=== PATIENT | female | born 1995 | race Caucasian/White ===

== ENCOUNTER → 2020-11-10 08:04 | Outpatient (BNVA) | payer OTHER, SELFPAY | PROVIDERS: PCP Nurse Practitioner Family; Visit Provider Surgery ==

== ENCOUNTER 2020-11-11 12:50 | Outpatient (REF) | payer OTHER, SELFPAY ==
--- NOTE | ~2020-11-11 | XR_ITS ---
EXAMINATION: XR CHEST CLINICAL INFORMATION: Obesity COMPARISON: None TECHNIQUE: 2 views of the chest were obtained. FINDINGS: No significant abnormality is noted involving the heart, lungs, mediastinum, bony thorax or soft tissues. XR/XR chest 2V IMPRESSION: Unremarkable examination.
--- NOTE | 2020-11-11 13:02 | ECG_ITS ---
Test Reason : MORBID OBESITY Blood Pressure : / mmHG Vent. Rate : 072 BPM Atrial Rate : 072 BPM P-R Int : 130 ms QRS Dur : 088 ms QT Int : 376 ms P-R-T Axes : 025 004 009 degrees QTc Int : 411 ms Normal sinus rhythm Minimal voltage criteria for LVH, may be normal variant Borderline ECG No previous ECGs available Referred By: Xander Miller Electronically Signed By:DERICK CHU MD
[2020-11-11 14:05] LABS: MANUAL DIFF FLAG NO
[2020-11-11 14:19] LABS: Basophils Percent Auto 0.4 % (0-2); Eosinophils Absolute Auto 0.1 X10*3/uL (0.0-0.4); Hemoglobin 12.1 g/dl (12.0-16.0); Imm Gran Abs Auto 0.02 X10*3/uL (0.00-0.03); Imm Gran Pct Auto 0.2 % (0.0-0.4); Lymphocytes Absolute Auto 2.1 X10*3/uL (1.2-4.9); Lymphocytes Percent Auto 25.5 % (20-40); Mean Corpuscular HGB Conc 31.8 g/dl (31.0-35.0); Mean Corpuscular Hemoglobin 27.9 pg (27.0-33.0); Mean Corpuscular Volume 87.8 fL (80-98); Mean Platelet Volume 10.1 fL (9.4-12.3); Monocytes Absolute Auto 0.5 X10*3/uL (0.1-1.2); Monocytes Percent Auto 6.4 % (2-11); Neutrophils Absolute Auto 5.5 X10*3/uL (2.0-8.3); Neutrophils Percent Auto 66.5 % (45-73); Platelet Count 333 X10*3/uL (160-400); Red Blood Count 4.33 X10*6/uL (4.20-5.50); Red Cell Distribution Width 12.8 % (11.0-16.0); White Blood Count 8.3 X10*3/uL (4.8-10.8)
[2020-11-11 14:25] LABS: Estimated Average Glucose 88 mg/dL; Hemoglobin A1c % 4.7 %
[2020-11-11 14:44] LABS: Alanine Aminotransferase 15 U/L (0-31); Albumin Level 4.1 g/dL (3.5-5.0); Alkaline Phosphatase 82 U/L (39-117); Anion Gap 13 (12-20); Aspartate Amino Transferase 16 U/L (5-31); Bilirubin Total 0.6 mg/dL (0.0-1.0); Blood Urea Nitrogen 11 mg/dL (9-16); Calcium 9.3 mg/dL (8.4-10.2); Carbon Dioxide 26 mmol/L (22-29); Chloride 103 mmol/L (96-108); Cholesterol 148 mg/dL; Estimated Glomerular Filt Rate > 60; Glucose Random 88 mg/dL (60-115); HDL Cholesterol 43 mg/dL; Iron 122 mcg/dL (30-160); LDL Cholesterol Calculated 91 mg/dl; Percent Iron Saturation 34 % (15-50); Potassium 4.3 mmol/L (3.3-5.1); Sodium 138 mmol/L (135-145); Total Iron Binding Capacity 359 mcg/dL (228-428); Total Protein 7.4 g/dL (6.5-8.0); Triglycerides 71 mg/dL; Unsaturated Iron Binding 237 ug/dL
[2020-11-11 14:58] LABS: Ferritin 42 ng/mL (10-122); TSH reflex Free T4 1.95 uIU/mL (0.32-4.0); Vitamin D 25-OH Total 20.8 ng/mL (>30)
[2020-11-11 15:12] LABS: Folate 15.1 ng/mL (> or = 4.0); Vitamin B12 345 pg/mL (200-900)
[2020-11-12 06:27] LABS: Insulin Level Total 12.5 uIU/mL
[2020-11-13 14:22] LABS: Calcium (PTHI) 9.1 mg/dL (8.6-10.2); PTHI 40 pg/mL (14-64)
[2020-11-16 06:41] LABS: Vitamin B1 12 nmol/L (8-30)
[2020-11-18 22:41] LABS: Vitamin A 34 mcg/dL (38-98)
== END 2020-11-11 12:51 | disposition home or self-care (01) ==
LOC: HO.LAB 12:50
PROVIDERS: Visit Provider Surgery
DX: E28.2 Polycystic ovarian syndrome (principal); E66.01 Morbid (severe) obesity due to excess calories; K21.9 Gastro-esophageal reflux disease without esophagitis
CPT/HCPCS: 36415; 71046; 80053; 80061; 82306; 82607; 82728; 82746; 83036; 83525; 83540; 83970; 84425; 84443; 84590; 85025; 86140; 93005

== ENCOUNTER 2020-11-23 12:57 | Outpatient (REF) | payer OTHER, SELFPAY ==
[2020-11-24 12:06] LABS: H Pylori Breath Test NOT DETECTED (NOT DETECTED)
== END 2020-11-23 12:58 | disposition home or self-care (01) ==
LOC: HO.LNP 12:57
PROVIDERS: Surgery; PCP Nurse Practitioner Family; Referring Provider Nurse Practitioner Family; Visit Provider Physician Assistant
DX: E66.01 Morbid (severe) obesity due to excess calories (principal); E28.2 Polycystic ovarian syndrome; K21.9 Gastro-esophageal reflux disease without esophagitis; E11.9 Type 2 diabetes mellitus without complications; Z11.3 Encounter for screening for infections with a predominantly sexual mode of transmission
CPT/HCPCS: 83013; 99211

== ENCOUNTER 2020-11-24 09:52 | Outpatient (REF) | payer OTHER, SELFPAY ==
--- NOTE | ~2020-11-24 | US_ITS ---
EXAMINATION: US COMPLETE ABDOMEN WITH LIVER ELASTOGRAPHY CLINICAL INFORMATION: Obesity COMPARISON: None. TECHNIQUE: Real-time imaging of the abdominal viscera. Noninvasive ultrasound liver fibrosis assessment is performed using Kaelyn ElastPQ point quantification shear wave elastography (pSWE) with a C5-2 MHz transducer. Multiple elastography samples are obtained. FINDINGS: PANCREAS: Normal. ABDOMINAL AORTA: The proximal, middle, and distal aortic segments are normal in caliber. INFERIOR VENA CAVA: Visualized portions are normal. LIVER: Normal. The liver demonstrates normal size, contour and echogenicity. No focal lesion or intrahepatic biliary duct dilatation. The right lobe measures 13.6 cm in length. The left lobe measures 10.6 cm in length. Portal flow is normal/hepatopedal Shear wave liver elastography median stiffness is 1.46 m/s (reference: normal median stiffness is 1.3 m/s or less). IQR/median stiffness to assess sampling precision is 0.14 (reference: good quality data set is IQR/median stiffness of 0.15 or less). GALLBLADDER: Normal. The gallbladder is physiologically distended without evidence of stones, sludge, polyps, wall thickening or pericholecystic fluid. COMMON BILE DUCT: Normal in caliber measuring 0.4 cm in diameter. RIGHT KIDNEY: Normal. No hydronephrosis. No renal calculi or focal parenchymal lesions. The kidney measures 11.8 cm in maximum dimension 0.4. LEFT KIDNEY: Normal. No hydronephrosis. No renal calculi or focal parenchymal lesions. The kidney measures 10.5 cm in maximum dimension. SPLEEN: Normal. The spleen measures 10.6 cm in maximum dimension. FREE FLUID: None. US/US abdomen comp w elastography IMPRESSION: 1. Impression: Unremarkable exam 2. Liver elastography: Minimally elevated liver stiffness. In the absence of other known clinical signs, rule out compensated advanced chronic liver disease. REFERENCE: Society of Radiologists in Ultrasound Liver Stiffness Thresholds (2020): LIVER STIFFNESS THRESHOLDS: *Liver Stiffness equal or less than 1.3 m/s: High probability of being normal. *Liver Stiffness less than 1.7 m/s: In the absence of other known clinical signs, rules out compensated advanced chronic liver disease. *Liver Stiffness 1.7-2.1 m/s: Suggestive of compensated advanced chronic liver disease but need further test for confirmation. *Liver Stiffness over 2.1 m/s: Rules in compensated advanced chronic liver disease. *Liver Stiffness over 2.4 m/s: Suggestive of clinically significant portal hypertension. QUALITY OF DATA SET: *IQR/Median value equal or less than 0.15 implies a quality data set. *IQR/Median value over 0.15 implies a poor quality data set. SIGNIFICANT CHANGE FROM PRIOR EXAM: Significant change if liver stiffness measurement is 10% or greater from prior exam. OTHER CONSIDERATIONS: The stage of liver fibrosis may be overestimated in the setting of acute hepatitis, liver inflammation, elevated liver function tests, hepatic vascular congestion, obstructive cholestasis, non-fasting state, and infiltrative diseases such as amyloidosis and lymphoma. In some patients with NAFLD, the liver stiffness thresholds for compensated advanced chronic liver disease may be lower. In causes other than viral hepatitis and NAFLD, liver stiffness thresholds are not well established.
--- NOTE | ~2020-11-24 | FL_ITS ---
EXAMINATION: XR GI SERIES CLINICAL INFORMATION: Obesity COMPARISON: None TECHNIQUE: Upper GI was performed using thin and thick barium and effervescent granules. FINDINGS: Esophageal motility is normal. No hernia is seen. No gastroesophageal reflux is seen. The stomach and duodenum are normal. No fold thickening mass, stricture or ulcer is seen. FLUOROSCOPY TIME: 0.7 DOSE AREA PRODUCT: 10.6 schuler per centimeter squared. 21 saved fluoroscopic images. FL/FL upper GI series IMPRESSION: Unremarkable exam.
== END 2020-11-24 09:53 | disposition home or self-care (01) ==
LOC: HO.US 09:52
PROVIDERS: Visit Provider Surgery
DX: Z01.818 Encounter for other preprocedural examination (principal); E28.2 Polycystic ovarian syndrome; E66.01 Morbid (severe) obesity due to excess calories; K21.9 Gastro-esophageal reflux disease without esophagitis
CPT/HCPCS: 74240; 76705; 76981

== ENCOUNTER → 2020-11-25 08:19 | Outpatient (BNVA) | payer OTHER, SELFPAY | PROVIDERS: PCP Nurse Practitioner Family; Visit Provider Surgery ==

== ENCOUNTER → 2020-12-02 08:17 | Outpatient (BNVA) | payer OTHER, SELFPAY | PROVIDERS: PCP Nurse Practitioner Family; Visit Provider Dietitian, Registered | DX: E66.01 Morbid (severe) obesity due to excess calories (principal); Z68.43 Body mass index [BMI] 50.0-59.9, adult | CPT/HCPCS: 97802 ==

== ENCOUNTER → 2020-12-15 07:28 | Outpatient (BNVA) | payer OTHER, SELFPAY | PROVIDERS: PCP Nurse Practitioner Family; Visit Provider Surgery ==

== ENCOUNTER → 2021-01-20 07:30 | Outpatient (BNVA) | payer OTHER, SELFPAY | PROVIDERS: PCP Nurse Practitioner Family; Visit Provider Surgery ==

== ENCOUNTER → 2021-01-22 13:23 | Outpatient (BNVA) | payer OTHER, SELFPAY | PROVIDERS: PCP Nurse Practitioner Family; Visit Provider Physician Assistant ==

== ENCOUNTER 2021-01-26 07:17 | Inpatient (IN) | payer OTHER, SELFPAY ==
[2021-01-19 10:34] VITALS: BMI 49.6
[2021-01-22 16:12] LABS: MANUAL DIFF FLAG NO
[2021-01-22 16:15] LABS: Basophils Percent Auto 0.4 % (0-2); Eosinophils Absolute Auto 0.1 X10*3/uL (0.0-0.4); Eosinophils Percent Auto 0.7 % (0-4); Hematocrit 39.2 % (37-47); Hemoglobin 12.5 g/dl (12.0-16.0); Imm Gran Abs Auto 0.03 X10*3/uL (0.00-0.03); Imm Gran Pct Auto 0.4 % (0.0-0.4); Lymphocytes Absolute Auto 1.3 X10*3/uL (1.2-4.9); Lymphocytes Percent Auto 15.7 % (20-40); Mean Corpuscular HGB Conc 31.9 g/dl (31.0-35.0); Mean Corpuscular Hemoglobin 28.7 pg (27.0-33.0); Mean Corpuscular Volume 90.1 fL (80-98); Mean Platelet Volume 10.1 fL (9.4-12.3); Monocytes Absolute Auto 0.6 X10*3/uL (0.1-1.2); Monocytes Percent Auto 7.1 % (2-11); Neutrophils Absolute Auto 6.4 X10*3/uL (2.0-8.3); Neutrophils Percent Auto 75.7 % (45-73); Platelet Count 306 X10*3/uL (160-400); Red Blood Count 4.35 X10*6/uL (4.20-5.50); Red Cell Distribution Width 12.8 % (11.0-16.0); White Blood Count 8.5 X10*3/uL (4.8-10.8)
[2021-01-22 16:19] LABS: INTERNATIONAL NORM RATIO 1.1 (0.9-1.1); Prothrombin Time 12.3 SEC (9.9-13.0)
[2021-01-22 16:22] LABS: Partial Thromboplastin Time 34.1 SEC (24.1-38.0)
[2021-01-22 16:32] LABS: Estimated Average Glucose 88 mg/dL; Hemoglobin A1c % 4.7 %
[2021-01-22 16:37] LABS: Alanine Aminotransferase 11 U/L (0-31); Albumin Level 4.4 g/dL (3.5-5.0); Alkaline Phosphatase 78 U/L (39-117); Anion Gap 14 (12-20); Aspartate Amino Transferase 15 U/L (5-31); Bilirubin Total 0.5 mg/dL (0.0-1.0); Blood Urea Nitrogen 9 mg/dL (9-16); C Reactive Protein 1.66 mg/dL (< or = 0.50); Carbon Dioxide 28 mmol/L (22-29); Chloride 103 mmol/L (96-108); Cholesterol 140 mg/dL; Creatinine Clr Calc Pharmacy 150.9; Estimated Glomerular Filt Rate > 60; Glucose Random 95 mg/dL (60-115); HDL Cholesterol 36 mg/dL; LDL Cholesterol Calculated 89 mg/dl; Potassium 4.8 mmol/L (3.3-5.1); Sodium 140 mmol/L (135-145); Total Protein 7.8 g/dL (6.5-8.0); Triglycerides 77 mg/dL
[2021-01-22 16:57] LABS: TSH reflex Free T4 0.67 uIU/mL (0.32-4.0)
[2021-01-23 10:02] LABS: Insulin Level Total 9.5 uIU/mL
--- NOTE | 2021-01-25 10:13 | P.CONAN_ITS ---
Documented by User: Qi Callahan 01/25/21 10:14 HPI - Anesthesia Eval Consult details Narrative: 25yo F for Gastrectomy Sleeve, EGD, Poss Diaphragmatic Hernia, Poss Ventral Hernia, Poss open PMFSH Active Problems Active Problems: All Active Problems (Updated 01/19/21 @ 10:38 by Yisel Merrill) Adjustment disorder, unspecified (Acute) Vitamin A deficiency (Acute) Vitamin D deficiency (Acute) Vitamin B12 deficiency (Acute) GERD (gastroesophageal reflux disease) (Acute) PCOS (polycystic ovarian syndrome) (Acute) Non-insulin dependent diabetes mellitus (Acute) Morbid obesity (Acute) Past Medical History Medical History COVID-19 vaccine series completed GERD (gastroesophageal reflux disease) Morbid obesity Non-insulin dependent diabetes mellitus PCOS (polycystic ovarian syndrome) Vitamin A deficiency Vitamin B12 deficiency Vitamin D deficiency Family History Family History Mother Diabetes Father No problems noted. Brother No problems noted. Surgical History Surgical History History of dental surgery No significant past surgical history Social History Social History Are you a primary home care scheduler to a significant other at home: No Do you presently have visiting nurse or other home services: No Alcohol intake: never Patient Tobacco Use Status: Never used Tobacco Use of substances other than those prescribed or required for medical reasons: No Have you been hit, kicked, punched, or otherwise hurt by someone within the past year? If so, by whom?: No Are you DNR?: No Advance Directives: No Advance Directives Information Provided: No Advance Directives on File: No Recently lost weight without trying: No How much weight loss: 24-33 pounds Eating poorly because of decreased appetite: No Nutrition screen score: 3 Nutrition Risks: No Nutritional Risk Patient : No FDLMP: 10/2020 : No Meds Allergies Allergy/AdvReac Type Severity Reaction Status Date / Time Penicillins Allergy Intermediate Hives Verified 01/26/21 11:12 control patch Allergy Mild Rash Uncoded 01/26/21 11:12 Home Medications Medication Instructions Recorded Confirmed Last Taken Type famotidine 20 mg tablet 20 mg PO BID 11/10/20 01/20/21 Unknown History metformin 500 mg tablet 500 mg PO BEDTIME 11/10/20 01/20/21 Unknown History multivitamin 1 tab PO DAILY 11/10/20 01/20/21 Unknown History progesterone micronized 200 mg 400 mg PO BEDTIME 11/10/20 01/20/21 2 Months Ago History capsule ~11/19/20 Exam Exam Date and Time: January 25, 2021 1013 Height,Weight and Vital Signs: Height 5 ft 3 in Weight 127.006 kg Pertinent Lab Results Pertinent Lab Results: Laboratory Tests 01/22/21 01/22/21 01/22/21 15:55 15:55 15:55 WBC 8.5 RBC 4.35 Hgb 12.5 Hct 39.2 MCV 90.1 MCH 28.7 MCHC 31.9 RDW 12.8 Plt Count 306 MPV 10.1 Immature Gran % (Auto) 0.4 Neut % (Auto) 75.7 H Lymph % (Auto) 15.7 L [place] % (Auto) 7.1 Eos % (Auto) 0.7 Baso % (Auto) 0.4 Lymph # (Auto) 1.3 [place] # (Auto) 0.6 Eos # (Auto) 0.1 Baso # (Auto) 0.0 Abs Immat Gran (auto) 0.03 Absolute Neuts (auto) 6.4 Absolute Nucleated RBC 0.000 Nucleated RBC % (auto) 0.0 PT 12.3 INR 1.1 APTT 34.1 Sodium 140 Potassium 4.8 Chloride 103 Carbon Dioxide 28 Anion Gap 14 BUN 9 Creatinine 0.74 Estim Creat Clear Calc 150.9 Estimated GFR > 60 Random Glucose 95 Estimat Average Glucose Hemoglobin A1c % Total Insulin Calcium 10.0 D Total Bilirubin 0.5 AST 15 ALT 11 Alkaline Phosphatase 78 C-Reactive Protein 1.66 H Total Protein 7.8 Albumin 4.4 Triglycerides 77 Cholesterol 140 LDL Cholesterol, Calc 89 HDL Cholesterol 36 TSH 0.67 Blood Type Antibody Screen 01/22/21 01/22/21 01/22/21 15:55 15:55 15:55 WBC RBC Hgb Hct MCV MCH MCHC RDW Plt Count MPV Immature Gran % (Auto) Neut % (Auto) Lymph % (Auto) [place] % (Auto) Eos % (Auto) Baso % (Auto) Lymph # (Auto) [place] # (Auto) Eos # (Auto) Baso # (Auto) Abs Immat Gran (auto) Absolute Neuts (auto) Absolute Nucleated RBC Nucleated RBC % (auto) PT INR APTT Sodium Potassium Chloride Carbon Dioxide Anion Gap BUN Creatinine Estim Creat Clear Calc Estimated GFR Random Glucose Estimat Average Glucose 88 Hemoglobin A1c % 4.7 Total Insulin 9.5 Calcium Total Bilirubin AST ALT Alkaline Phosphatase C-Reactive Protein Total Protein Albumin Triglycerides Cholesterol LDL Cholesterol, Calc HDL Cholesterol TSH Blood Type O Positive Antibody Screen NEGATIVE Narrative Narrative: EKG 10/2020 Vent. Rate : 072 BPM Atrial Rate : 072 BPM P-R Int : 130 ms QRS Dur : 088 ms QT Int : 376 ms P-R-T Axes : 025 004 009 degrees QTc Int : 411 ms Normal sinus rhythm Minimal voltage criteria for LVH, may be normal variant Borderline ECG No previous ECGs available Assessment and Plan Assessment Anesthesia Assessment: Chart Reviewed Documented by User: Laurel Hall 01/26/21 11:38 [facility] Past Medical History Medical History COVID-19 vaccine series completed GERD (gastroesophageal reflux disease) Morbid obesity Non-insulin dependent diabetes mellitus PCOS (polycystic ovarian syndrome) Vitamin A deficiency Vitamin B12 deficiency Vitamin D deficiency Family History Family History Mother Diabetes Father No problems noted. Brother No problems noted. Surgical History Surgical History History of dental surgery No significant past surgical history Social History Social History Are you a primary home care scheduler to a significant other at home: No Do you presently have visiting nurse or other home services: No Alcohol intake: never Patient Tobacco Use Status: Never used Tobacco Use of substances other than those prescribed or required for medical reasons: No Have you been hit, kicked, punched, or otherwise hurt by someone within the past year? If so, by whom?: No Are you DNR?: No Advance Directives: No Advance Directives Information Provided: No Advance Directives on File: No Recently lost weight without trying: No How much weight loss: 24-33 pounds Eating poorly because of decreased appetite: No Nutrition screen score: 3 Nutrition Risks: No Nutritional Risk Patient : No FDLMP: 10/2020 : No Meds Allergies Allergy/AdvReac Type Severity Reaction Status Date / Time Penicillins Allergy Intermediate Hives Verified 01/26/21 11:12 control patch Allergy Mild Rash Uncoded 01/26/21 11:12 Home Medications Medication Instructions Recorded Confirmed Last Taken Type famotidine 20 mg tablet 20 mg PO BID 11/10/20 01/20/21 Unknown History metformin 500 mg tablet 500 mg PO BEDTIME 11/10/20 01/20/21 Unknown History multivitamin 1 tab PO DAILY 11/10/20 01/20/21 Unknown History progesterone micronized 200 mg 400 mg PO BEDTIME 11/10/20 01/20/21 2 Months Ago History capsule ~11/19/20 Exam Airway Mallampati Class: II TM Dist: >3cm Neck ROM: Full Loose/Missing/Broken Teeth: No Heart: RRR Lungs: CTA Assessment and Plan Assessment Anesthesia Assessment: Anesthesia Plan Discussed and Chart Reviewed Final Anesthetic Review NPO: Yes ASA Class: III Final Preanesthetic Review: Meds/Allgs Chart Reviewed, Consent Obtained/Reviewed and Anes Risks/Benef Reviewed Patient Risk: Intermediate Procedure Risk: Intermediate Anesthetic Plan Anesthetic Plan: GA Disposition: Standard PACU
--- NOTE | 2021-01-25 19:18 | MHC.SHP ---
Pre-Procedural Eval Section A Date of Service: 01/25/21 The patient is an INPATIENT: Yes The History & Physical has been completed within 30 days and I have reviewed it.: Yes Section B Chief Complaint: Morbid Severe Obesity Details of Present Illness: obesity Relevant Family History (Specify if Yes): No Relevant Social History: None Present Medications: see Short Stay Collaborative assessment Medical History: No relevant PMH History of Previous Operations: No relevant previous surgery Allergies: Allergies Allergy/AdvReac Type Severity Reaction Status Date / Time Penicillins Allergy Unknown Hives Verified 01/20/21 13:27 control patch Allergy Rash Uncoded 01/20/21 13:27 Review of Systems Sugical H&P ROS: Negative: Constitution, Cardiovascular, Respiratory, Neurological, Psychiatric, Hem-Onc, Allergic/Immunologic, Gastrointestinal, Genitourinary, Musculoskeletal, Integumentary, Endocrine and Eyes/Ears/Nose/Throat Exam Surgical H&P Exam: Normal: HEENT, Normal: Heart, Normal: Lungs, Normal: Extremities, Normal: Abdomen, Normal: Skin and Normal: Neurological Plan Diagnosis/Plan: Unchanged I have reviewed the history and physical and performed a pertinent physical examination on my patient. No changes have occurred unless specified.
[2021-01-26] VITALS (10 sets, daily range): BP systolic 104–137; BP diastolic 60–75; PULSE 67–109; RESP 12–18; TEMP 36.3–37; O2SAT 95–100
[2021-01-26 10:59] LABS: Glucose, Whole Blood 76 mg/dL (60-115)
[2021-01-26 11:03] LABS: UPreg QC Valid YES; Urine Pregnancy NEGATIVE (NEGATIVE)
[2021-01-26 11:16] LABS: COVID-19 Test Negative (Negative); IDNOW Serial# 9DD0AD1C
[2021-01-26] MEDS: Lactated Ringers 1,000 ML 100 ML IVCONT (11:27)
[2021-01-26] MEDS: levoFLOXacin/D5W 500 MG/100 ML PIGGYBACK 100 MG IV (11:27)
[2021-01-26] MEDS: Lactated Ringers 1,000 ML 999 ML IV (11:50)
--- NOTE | 2021-01-26 12:15 | P.BOP_ITS ---
Brief Operative Note Date of Service: 01/26/21 Pre-op diagnosis: Morbid obesity and comorbidities (see below) Post-op diagnosis: same Procedure: INITIAL PATIENT BMI ON PRESENTATION AT OUR OFFICE: 54.8 kg/m2 LAST BMI BEFORE SURGERY: 49 kg/m2 COMORBIDITIES: non-insulin dependent diabetes, GERD, PCOS, liver fibrosis The patient participated in an intensive weekly lifestyle intervention and exercise program during which the patient has lost between the initial office visit and the last preoperative visit 37.5lbs, or 12.12% of initial actual body weight. The patient met the BMI-criteria for bariatric surgery based on the BMI on initial presentation. The patient should not be penalized for achieving such weight loss because it is not sustainable long-term without surgical intervention and it was achieved in preparation for bariatric surgery under my direction and based on my published research ([email or web address] and [email or web address]) that a 10% preoperative weight loss improves long-term weight loss after surgery and reduces perioperative complications. Insurance carriers such as [facility] have endorsed my recommendations and have included in their policies criteria to include a 10% preoperative weight loss requirement. PROCEDURE: Esophago-gastroscopy, laparoscopic repair of incarcerated diaphragmatic hernia, laparoscopic lysis of adhesions, laparoscopic sleeve gastrectomy and laparoscopic gastropexy INDICATIONS: This is a 25 year-old female who was electively scheduled for laparoscopic, possibly open sleeve gastrectomy. The risks and complications of the procedure were discussed with the patient in advance, particularly the possibility of ; pulmonary embolism; staple line leak; bleeding; GERD; cardiac, pulmonary, or renal complications; as well as long-term problems such as insufficient weight loss, vitamin deficiency, strictures, or ulcers. The patient understood all the risks, and was in agreement to proceed with surgery. DESCRIPTION OF PROCEDURE: After informed consent was obtained from the patient, the patient was given preoperative antibiotics, and was transferred to the operating room. After successful induction of general anesthesia, a Hernandez catheter and pneumatic compressive devices were placed on both lower extremities. An upper endoscopy was performed next. The oropharynx and esophagus appeared to be within normal limits. There was a diaphragmatic hernia present of moderate size consistent with the findings of the preoperative upper GI. The stomach was entered. Then after all fluid and air were suctioned and the stomach was fully decompressed, the scope was withdrawn and secured in the mid esophagus. The patient was then prepped and draped in the usual sterile manner, and abdominal access was established at the right upper quadrant with the Travon technique. A 12 mm blunt port was inserted, and the abdomen was insufflated with CO2 to a pressure of 15 mmHg. Under direct visualization, additional ports were placed, specifically two 5 mm Versi-step ports to the left upper quadrant, and a 5 mm Versi-Step port to the right upper quadrant. 1% lidocaine plain was used to infiltrate all port sites as well as all fascia defects. Following that, the patient was placed in a steep reverse Trendelenburg position. An additional 5 mm port was placed to the right flank for the Mediflex retractor that was used to retract the left lobe of the liver. The gastro-esophageal fat pad was opened with the ultrasonic device (Thunderbeat, Olympus) and the anterior esophagus and hiatus were exposed. The angle of His was opened with the ultrasonic device the fundus of the stomach from any diaphragmatic and splenic attachments. I then opened the gastrocolic ligament between the transverse colon and the greater curvature of the stomach with the ultrasonic device to enter the lesser sac and facilitate the ligation of the short gastric vessels. I started at a mid-point along the greater curvature and using the Thunderbeat, all short gastric vessels were divided all the way to the angle of His until the left elise was completely dissected at its entirety. I then divided the gastro-colic ligament distally to a distance of about 3-4 cm proximal to the esophagus. The stomach was then divided transversely with one Endo PAPITO-45 purple and four PAPITO-60 articulating orange loads using the AEON stapler and loads. Every effort was made that the gastric sleeve had a tubular shape and an even caliber throughout. Once the sleeve resection was completed, the staple line of the gastric sleeve was reinforced with Hemoclips. The resected stomach was retrieved without difficulty from the Travon port. A gastropexy was then performed in order to prevent postoperative GERD and partial gastric volvulus. Several interrupted 2.0 Surgidac sutures were placed between the sleeve's staple line and the previously divided greater omentum and gastro-colic ligament using the Endo-Stitch device. An upper endoscopy was performed. There was no narrowing at the GE junction. The scope was easily advanced all the way to the pylorus which was clearly visualized. There was no narrowing anywhere and the sleeve's caliber was even throughout. The sleeve's staple line was inspected and there was no evidence of ischemia, bleeding or dehiscence. At that point the gastroscope was withdrawn from the patient?s mouth while we were decompressing the bowel and the stomach from any remaining air. I looked into the lesser sac to see how the sleeve was situating and it was situating well. There was no bleeding from the staple line, spleen, or short gastric vessels. The Mediflex retractor was removed, and the undersurface of the liver was inspected and there was no bleeding. The patient was placed in supine position. I closed the fascial defect of the 12 mm port site with a figure of eight #1 Polysorb suture. Then 100 cc 0.25 % Marcaine plain with 10 mg of Dexamethasone were used to infiltrate the fascial closure as well as all skin incisions. At this point, the abdomen was deflated, all ports were removed under direct vision, and no bleeding was noted from any of the port sites. The skin incisions were irrigated with saline and were closed with 4-0 absorbable monofilament sutures. Steri-Strips and OpSites were used to cover all incisions. The patient was extubated and was transferred in stable condition to the recovery room for further care. I was present and performed all schneider parts of the procedure. [place] was the first aid trainer. There were no residents to assist with this case. Miles Miller MD, PhD, FACS Surgeon: Xander Miller MD Anesthesia: GETA, local and other (TAP block) Was an Director Of Instructional Technology used for this Procedure?: Yes Director Of Instructional Technology: Lona Perry Estimated blood loss (mL): 5 IV fluids (mL): 3,000 Urine output (mL): 0 (No Hernandez to gravity) Pathology: other (Stomach) Condition: stable Disposition: PACU
--- NOTE | 2021-01-26 12:18 | PM.PNGS ---
Subjective Subjective Date of Service: 01/27/21 Interval history: Patient has mild incisional pain but was able to ambulate and use the incentive spirometer. Is tolerating phase 1 bariatric diet. Physical Exam Vital Signs: Vital Signs: Last Vital Signs Temp 98.1 F 01/26/21 11:13 Pulse 109 H 01/26/21 11:13 Resp 18 01/26/21 11:13 BP 137/75 01/26/21 11:13 Pulse Ox 99 01/26/21 11:13 Body Mass Index 49.6 GI: Inspection: Yes normal to inspection, Yes incision (clean, dry and intact) and Yes obesity Extrem: Right lower extremity: normal to inspection (no calf tenderness) Left lower extremity: normal to inspection (no calf tenderness) Procedures Date of Service Date of Service: 01/27/21 Progress Note: A&P Assessment and plan (1) Morbid obesity: Status: Acute (2) Non-insulin dependent diabetes mellitus: Status: Acute (3) PCOS (polycystic ovarian syndrome): Status: Acute (4) GERD (gastroesophageal reflux disease): Status: Acute (5) Liver fibrosis: Status: Acute (6) S/P laparoscopic sleeve gastrectomy: Status: Acute Assessment and Plan: s/p laparoscopic sleeve gastrectomy and gastropexy Doing well Check am labs. If OK, will discharge home Fall Risk Details Current Medications: Current Medications Generic Name Dose Route Start Last Admin Trade Name Freq PRN Reason Stop Dose Admin Albuterol Sulfate 2.5 mg 01/26/21 11:39 Albuterol Sulfate (0.083%) 2.5 Mg/3 Ml Vial.Neb INHALE ONCE PRN Wheezing Fentanyl 50 mcg 01/26/21 11:39 Fentanyl Citrate/Pf 100 Mcg/2 Ml Vial IVPUSH Q5M PRN Pain, Severe (Pain Scale 7-10) Fentanyl 25 mcg 01/26/21 11:39 Fentanyl Citrate/Pf 100 Mcg/2 Ml Vial IVPUSH Q5M PRN Pain, Moderate (Pain Scale 4-6 Lactated Ringer's 1,000 mls @ 100 mls/hr 01/26/21 10:45 01/26/21 11:27 Lr IVCONT 100 mls/hr .Q10H BHARAT Administration Promethazine HCl 6.25 mg/ 50.25 mls @ 201 mls/hr 01/26/21 11:39 Sodium Chloride IV ONCE PRN Nausea and Vomiting Oxycodone HCl 10 mg 01/26/21 11:39 Oxycodone Hcl Immed Release 5 Mg Tablet PO ONCE PRN Pain, Severe (Pain Scale 7-10) Oxycodone HCl 5 mg 01/26/21 11:39 Oxycodone Hcl Immed Release 5 Mg Tablet PO ONCE PRN Pain, Severe (Pain Scale 7-10) Time Spent With Patient Time: Total time spent is greater than 50% in coordination of care (as documented) at patient's floor/unit and/or counseling patient: Time with patient: less than 15 minutes Quality Stroke Does the patient have a stroke diagnosis?: No VTE Prior VTE?: No VTE Risk Level:: Surgical - moderate VTE Device Contraindication: N/A - Device Ordered VTE Drug Contraindication: Treatment Not Indicated
--- NOTE | 2021-01-26 14:44 | PM.DS ---
DS: Providers Provider Date of Service: 01/27/21 Date of admission: 01/26/21 07:17 Primary care physician: Diana Red NP DS: Diagnosis Discharge Diagnosis (1) Morbid obesity: Status: Acute (2) Non-insulin dependent diabetes mellitus: Status: Acute (3) PCOS (polycystic ovarian syndrome): Status: Acute (4) GERD (gastroesophageal reflux disease): Status: Acute (5) Liver fibrosis: Status: Acute DS: Medications Discharge Medications Home Medications: Home Medications Medication Instructions Recorded Confirmed famotidine 20 mg tablet 20 mg PO BID 11/10/20 01/20/21 metformin 500 mg tablet 500 mg PO BEDTIME 11/10/20 01/20/21 multivitamin 1 tab PO DAILY 11/10/20 01/20/21 progesterone micronized 200 mg 400 mg PO BEDTIME 11/10/20 01/20/21 capsule Previous Rx's Medication Instructions Recorded cholecalciferol (vitamin D3) 125 125 mcg PO DAILY #30 cap 11/25/20 mcg (5,000 unit) capsule mecobalamin (vitamin B12) 1,000 1,000 mcg SUBLINGUAL DAILY #30 tab 11/25/20 mcg disintegrating tablet,sublingual vitamin A palmitate 10,000 unit 10,000 unit PO .COMPLEX #30 cap 11/25/20 capsule ondansetron HCl 4 mg tablet 4 mg PO Q6H PRN #20 tab 01/20/21 pantoprazole 40 mg tablet,delayed 40 mg PO DAILY #30 tab 01/20/21 release polyethylene glycol 3350 17 gram 17 g PO DAILY #14 ea 01/20/21 oral powder packet sucralfate 100 mg/mL oral 10 ml PO BID #400 ml 01/20/21 suspension DS: Summary Time Spent with Patient Time attestation: ADMITTING DIAGNOSIS: morbid obesity, NIDDM, PCOS, GERD DISCHARGE DIAGNOSIS: same, s/p laparoscopic sleeve gastrectomy PAST SURGICAL HISTORY: none PROCEDURE: upper endoscopy, laparoscopic sleeve gastrectomy hernia DISCHARGE SUMMARY: History of Present Illness: The patient is a 25 year-old woman with a BMI of 54.8 kg/m2 and associated co-morbidities as described above. The patient had extensive work-up,lost 29.7 lbs preoperatively and was electively scheduled for laparoscopic, possible open sleeve gastrectomy and gastropexy. Risks and complications of the surgery were discussed with the patient in advance, particularly the possibility of , pulmonary embolism, anastomotic leak, bleeding, bowel injury, GERD, cardiac, renal or pulmonary complications. The patient understood all the risks and was in agreement with the surgical plan. Hospital Course: The patient underwent an uneventful laparoscopic sleeve gastrectomy with gastropexy on the day of admission. Postoperatively, the patient was transferred to the surgical floor. The patient received IV Acetaminophen and IV dilaudid for pain control. Patient was started on bariatric phase 1 diet POD #0. On postoperative day one, the patient was feeling well without nausea, vomiting, fevers, or tachycardia. The patient had some mild incisional pain and the abdomen was soft. On the morning of postoperative day one, the patient was continued on 1 ounce of water or ice every half hour. During the day, the patient did fairly well, having some incisional pain, but able to ambulate adequately and to tolerate liquids well. Since the patient is doing well, we decided that the patient was ready to be discharged. The patient was given instructions to follow-up with me next week and to call my office for any fever over 101, persistent abdominal pain, nausea, vomiting, GERD, symptoms of DVT such as calf tenderness, or leg swelling, or pulmonary embolism such as chest pain or shortness of breath. The patient was also instructed to drink 40-60 ounces of liquids per day using the 1-ounce cups. The patient had been given prescriptions for Tylenol for pain, Zofran prn for nausea, and pantoprazole and carafate previously. The patient was encouraged to ambulate and use the incentive spirometer. The patient was allowed to shower, but no baths, and encouraged to stay active at home. All of these instructions were given to the patient personally. All questions were answered and the patient understood all instructions, the instructions were also given to the patient in print. Total time spent providing and/or coordinating discharge services: 15 Discharge coordination time: Less than 30 minutes Quality: Stroke Does the patient have a stroke diagnosis?: No Physical Exam Vital Signs: Vital Signs: Last Vital Signs Temp 98.1 F 01/26/21 11:13 Pulse 109 H 01/26/21 11:13 Resp 18 01/26/21 11:13 BP 137/75 01/26/21 11:13 Pulse Ox 99 01/26/21 11:13 Body Mass Index 49.6 DS: Data Data Completed and Pending Pending studies at discharge: Pending at discharge 01/26/21 14:33 Surgical [PTH] Routine Labs on day of discharge: Laboratory Results - last 24 hr 01/26/21 01/26/21 01/26/21 10:48 10:51 10:54 POC Glucose 76 Urine Test NEGATIVE COVID-19 ([facility]) Negative COVID-19 Clin Com See Note Discharge Plan Discharge Anticipated Discharge Date/Time: 01/27/21 11:40 Patient Disposition: Home, Self-Care Discharge Diagnosis: s/p sleeve gastrectomy Referrals: Diana Red [employer] [Primary Care Provider] - 1 Week Discharge Medications: Continued pantoprazole 40 mg tablet,delayed release (DR/EC) 40 mg PO DAILY Qty: 30 RF: 2 sucralfate 100 mg/mL suspension 10 ml PO BID Qty: 400 RF: 2 ondansetron HCl [Zofran] 4 mg tablet 4 mg PO Q6H PRN (Reason: nausea and vomiting) Qty: 20 RF: 0 Held metformin 500 mg tablet 500 mg PO BEDTIME RF: 0 Hold Instructions: Discuss when to restart with Dr Miller progesterone micronized 200 mg capsule 400 mg PO BEDTIME RF: 0 Hold Instructions: Discussed when to restart with Dr Miller Discontinued polyethylene glycol 3350 [Miralax] 17 gram powder in packet 17 g PO DAILY Qty: 14 RF: 0 famotidine 20 mg tablet 20 mg PO BID RF: 0 multivitamin Tablet 1 tab PO DAILY RF: 0 mecobalamin (vitamin B12) 1,000 mcg tablet,disintegrating 1,000 mcg sublingual DAILY Qty: 30 RF: 1 cholecalciferol (vitamin D3) 125 mcg (5,000 unit) capsule 125 mcg PO DAILY Qty: 30 RF: 2 vitamin A palmitate 10,000 unit capsule 10,000 unit PO .COMPLEX Qty: 30 RF: 2 Discharge Orders: Discharge Order (Routine); Ordered 01/27/21 Ordered By: Xander Miller Diet: other Activity on Discharge: No heavy lifting Stand Alone Forms: Patient Portal Discharge page Care Plan Goals: weight loss Health Concerns: morbid obesity Plan of Treatment: No tub baths, sex or returning to work until discussed at first post op appointment. No exercise, alcohol, tobacco or illegal drug use. Continue to use incentive spirometer hourly while awake. Walk in home for 5- 10 minutes every 2 hours during the first week. Continue phase 1 diet today and start phase 2 diet tomorrow morning. Follow all instructions in the bariatric handbook and call with any questions. The patient's medical history has been reviewed and they are considered low risk for post op DVT and therefore DVT prophylaxis is not considered necessary. Travel after surgery was reviewed. The patient has not disclosed any travel plans during the first 30 days after surgery and they have been advised that within the first 30 days after surgery any bus, plane, train or car travel over 2 hours in duration is contraindicated due to the possibility of developing blood clots from immobility. Any travel, needs to include periods of ambulation of 10 minutes in duration every 2 hours. The patient was instructed to discuss any plans for travel during this period with their bariatric surgeon. Assessment: stable, s/p sleeve gastrectomy Discharge Date/Time: 01/27/21 11:00
[2021-01-26] MEDS: Famotidine/PF 20 MG/2 ML VIAL IVPUSH (15:01)
[2021-01-26 15:25] LABS: Hematocrit 35.1 % (37-47); Hemoglobin 11.3 g/dl (12.0-16.0)
[2021-01-26 15:45] LABS: Anion Gap 16 (12-20); Blood Urea Nitrogen 9 mg/dL (9-16); Calcium 8.5 mg/dL (8.4-10.2); Carbon Dioxide 21 mmol/L (22-29); Chloride 105 mmol/L (96-108); Creatinine Clr Calc Pharmacy 164.1; Estimated Glomerular Filt Rate > 60; Glucose Random 120 mg/dL (60-115); Potassium 4.6 mmol/L (3.3-5.1); Sodium 137 mmol/L (135-145)
[2021-01-26] MEDS: Lactated Ringers 1,000 ML 125 ML IVCONT ×2 (15:58→22:58)
[2021-01-26 16:35] LABS: Glucose, Whole Blood 125 mg/dL (60-115)
[2021-01-26 21:18] LABS: Glucose, Whole Blood 120 mg/dL (60-115)
[2021-01-26] MEDS: 0.9 % Sodium Chloride Flush 3 ML SYRINGE IVFLUSH (21:56)
[2021-01-27 01:46] LABS: Zinc 67 mcg/dL (60-130)
[2021-01-27 04:00] VITALS: BP 107/66; PULSE 67; RESP 14; TEMP 36.8; O2SAT 98
[2021-01-27 06:22] LABS: MANUAL DIFF FLAG NO
[2021-01-27] MEDS: Lactated Ringers 1,000 ML 125 ML IVCONT (06:26)
[2021-01-27 06:34] LABS: Hematocrit 34.4 % (37-47); Hemoglobin 10.9 g/dl (12.0-16.0); Imm Gran Abs Auto 0.03 X10*3/uL (0.00-0.03); Imm Gran Pct Auto 0.4 % (0.0-0.4); Lymphocytes Absolute Auto 0.8 X10*3/uL (1.2-4.9); Lymphocytes Percent Auto 10.5 % (20-40); Mean Corpuscular HGB Conc 31.7 g/dl (31.0-35.0); Mean Corpuscular Hemoglobin 28.3 pg (27.0-33.0); Mean Corpuscular Volume 89.4 fL (80-98); Mean Platelet Volume 10.8 fL (9.4-12.3); Monocytes Absolute Auto 0.3 X10*3/uL (0.1-1.2); Monocytes Percent Auto 3.5 % (2-11); Neutrophils Absolute Auto 6.6 X10*3/uL (2.0-8.3); Neutrophils Percent Auto 85.6 % (45-73); Platelet Count 278 X10*3/uL (160-400); Red Blood Count 3.85 X10*6/uL (4.20-5.50); Red Cell Distribution Width 12.5 % (11.0-16.0); White Blood Count 7.7 X10*3/uL (4.8-10.8)
[2021-01-27 07:24] LABS: Anion Gap 12 (12-20); Blood Urea Nitrogen 8 mg/dL (9-16); Carbon Dioxide 24 mmol/L (22-29); Chloride 102 mmol/L (96-108); Creatinine Clr Calc Pharmacy 174.4; Estimated Glomerular Filt Rate > 60; Glucose Random 97 mg/dL (60-115); Potassium 4.4 mmol/L (3.3-5.1); Sodium 134 mmol/L (135-145)
[2021-01-27 07:59] LABS: Glucose, Whole Blood 86 mg/dL (60-115)
[2021-01-27 08:00] VITALS: BP 119/53; PULSE 66; RESP 18; TEMP 37.1; O2SAT 100
[2021-01-27] MEDS: Famotidine/PF 20 MG/2 ML VIAL IVPUSH (08:09)
--- NOTE | 2021-01-27 08:37 | HO.POSTANES ---
Post Anesthesia Evaluation Post Anesthesia Evaluation Vital Signs: Vital Signs Temp Pulse Resp BP Pulse Ox 01/27/21 04:00 98.2 F 67 14 107/66 98 01/26/21 23:30 98.6 F 67 14 115/69 99 Anesthesia: General Endotracheal-GETA Mental Status: Awake Pain Control: Satisfactory Nausea/Vomiting: None Hydration: Adequate Anesthesia-Related Issues: No Anes. Related Issues
--- NOTE | 2021-01-27 09:48 | MHC.CM.PN ---
PATIENT IS FULLY INDEPENDENT WITH ALL ADLS. NO DME OR [facility] SERVICES SHE IS HOPING FOR A [id number] NOTE THIS CULTURIST SPOKE WITH RN, AND RELAYED TO THE PATIENT THAT THE SURGEON WILL ASSESS HER IN OFFICE IN ONE WEEK AND GIVE THE NOTE AT THAT TIME. MOM IS HCP. COPY REQUESTED. PATIENT HAS TRANSPORT HOME
== END 2021-01-27 11:00 | disposition home or self-care (01) | DRG 403 ==
LOC: HO.SSSA 07:22 → HO.S3 14:58
PROVIDERS: Nurse Practitioner; Physician Assistant; Admitting Provider Surgery; PCP Nurse Practitioner Family; Visit Provider Surgery
PROC: 0DB64Z3 Excision of Stomach, Percutaneous Endoscopic Approach, Vertical (ICD-10-PCS; CPT 43845; principal; 2021-01-26 12:50)
DX: E66.01 Morbid (severe) obesity due to excess calories (principal); K74.00 Hepatic fibrosis, unspecified; K44.0 Diaphragmatic hernia with obstruction, without gangrene; E11.9 Type 2 diabetes mellitus without complications; K21.9 Gastro-esophageal reflux disease without esophagitis; E28.2 Polycystic ovarian syndrome; Z68.42 Body mass index [BMI] 45.0-49.9, adult; Z20.822 Contact with and (suspected) exposure to COVID-19; Z79.84 Long term (current) use of oral hypoglycemic drugs; Z88.0 Allergy status to penicillin; Z79.899 Other long term (current) drug therapy
CPT/HCPCS: 36415; 80048; 80053; 80061; 81025; 82947; 83036; 83525; 84443; 84630; 85014; 85018; 85025; 85610; 85730; 86140; 86850; 86900; 86901; 87635; 88307; 88342; 99024; A4649; J0131; J1100; J1170; J1956; J2250; J2370; J2405; J3010

== ENCOUNTER → 2021-02-22 06:45 | Outpatient (BNVA) | payer OTHER, SELFPAY | PROVIDERS: PCP Nurse Practitioner Family; Visit Provider Surgery | DX: E66.01 Morbid (severe) obesity due to excess calories (principal) | CPT/HCPCS: 99212 ==

== ENCOUNTER → 2021-04-19 08:08 | Outpatient (BNVA) | payer OTHER, SELFPAY | PROVIDERS: PCP Nurse Practitioner Family; Visit Provider Surgery | DX: E66.01 Morbid (severe) obesity due to excess calories (principal); Z68.41 Body mass index [BMI] 40.0-44.9, adult | CPT/HCPCS: 99212 ==